=== PATIENT | male | born 1955 | race Caucasian/White ===

== ENCOUNTER 2016-09-03 04:27 | Emergency (ER) | payer OTHER ==
[~2016-09-03] VITALS: Ht 162.6 cm; Wt 90.0 kg
[~2016-09-03 04:27] MED LIST: ALBU17I; CARB200T16; CIPR500T2; KLON2TAB; OMEP20CA5; [UNRECOGNIZED DRUG - REMARK]; [UNRECOGNIZED DRUG - REMARK]
[2016-09-03 04:41] VITALS: BP 146/77; PULSE 92; RESP 16; TEMP 98.9; O2SAT 96
--- NOTE | 2016-09-03 05:37 | PD ---
HPI Chief Complaint: Depression Time Seen by Provider: 05:31 Travel History International Travel<30 days: No Contact w/Intl Traveler<30days: No Traveled to known affect area: No History of Present Illness HPI 60-year-old white male presents to emergency department on a voluntary basis for psychological evaluation. The patient states that he is 100% [facility]. He had been on antidepressants and medicine for anxiety. He states that he had weaned himself off of all medications. He's been off medicines now for months to years. He recently was seen at [facility] 2 days ago for a chest pain evaluation. He had a cardiac catheterization performed which showed a 30% blockage. He was discharged home yesterday. The patient went back again earlier today because of chest pain and shortness of breath and associated nausea. He once again had an evaluation in the ER and was discharged home. He neglected to tell the ER physician that he was feeling depressed. He states that he does not have chest pain now but still has some slight nausea. He has chronic shortness of breath due to COPD. He admits to feeling depressed and having suicidal thoughts but has no current plan. He states that if he thought about killing himself he would squat it out by reading the Bible. He denies any homicidal ideation. No toxic ingestions. He denies alcohol, drugs. He is attempting to quit smoking. [facility] Past Medical History Narrative Medical Anxiety, depression, hypertension, GERD, questionable Valenzeula's, coronary artery disease, COPD Asthma: Yes Anxiety: Yes Depression: Yes Cardiovascular Problems: Yes (HTN, CARDIAC CATH/ANGIOGRAM) High Cholesterol: Yes COPD: Yes Diminished Hearing: No Hypertension: Yes Tetanus Vaccination: < 5 Years Past Surgical History Other Surgery: Yes (FATTY TUMORS REMOVED ARMS/ABDOMEN) Social History Alcohol Use: No (NONE SINCE 1982/USE TO DRINK DAILY, 6 PK BEER) Tobacco Use: Yes (1 /2 PPD/STARTED AGE 15) Substance Use: No Allergies-Medications (Allergen,Severity, Reaction): Coded Allergies: Doxycycline (Verified Allergy, Severe, Nausea/Vomiting, 09/03/16) Contrast Media (Verified Allergy, Intermediate, HIVES, ITCHING, 09/03/16) Penicillin (Verified Allergy, Intermediate, HIVES, 09/03/16) Sulfa (Verified Allergy, Unknown, 09/03/16) Anafranil (Verified Adverse Reaction, Intermediate, "SEVERE DEPRESSION", ) Prozac (Verified Adverse Reaction, Mild, "SEVERE DEPRESSION", 09/03/16) Zoloft (Verified Adverse Reaction, Mild, "SEVERE DEPRESSION", 09/03/16) Reported Meds & Prescriptions Reported Meds & Active Scripts Active Reported ["Heart Pill"] Proventil Mdi (Albuterol Sulfate) 17 Gm Aero Klonopin (Clonazepam) 2 Mg Tab Tegretol (Carbamazepine) 200 Mg Tab ["B/P"] Prilosec (Omeprazole) 20 Mg Capcr Cipro (Ciprofloxacin) 500 Mg Tab Review of Systems Except as stated in HPI: all other systems reviewed are Neg General / Constitutional: No: Fever, Chills Eyes: No: Blurred Vision, Photophobia HENT: No: Sore Throat, Neck Pain Cardiovascular: No: Chest Pain or Discomfort, Palpitations Respiratory: Positive: Shortness of Breath, Wheezing, No: Cough Gastrointestinal: Positive: Nausea, No: Vomiting Genitourinary: No: Dysuria, Nocturia Musculoskeletal: No: Myalgias, Weakness Skin: No Rash, No Itching Physical Exam Narrative GENERAL: Well-nourished, well-developed patient. SKIN: Warm and dry. HEAD: Normocephalic and atraumatic. EYES: No scleral icterus. No injection or drainage. ENT: No nasal drainage noted. Mucous membranes pink. Airway patent. NECK: Supple, trachea midline. Moves head freely without obvious discomfort. CARDIOVASCULAR: Regular rate and rhythm without murmurs, gallops, or rubs. RESPIRATORY: Breath sounds equal bilaterally. No accessory muscle use. Few expiratory wheezes. GASTROINTESTINAL: Abdomen soft, non-tender, nondistended. EXTREMITIES: No cyanosis or edema. BACK: Nontender without obvious deformity. No CVA tenderness. NEURO: Patient is alert and oriented. no sensorimotor deficits. Nonfocal. Normal speech. PSYCH: No delusions. No auditory or visual hallucinations. Data Data Last Documented VS Vital Signs Date Time Temp Pulse Resp B/P Pulse Ox O2 Delivery O2 Flow Rate FiO2 09/03/16 04:41 98.9 92 16 146/77 96 Orders Complete Blood Count With Diff (09/03/16 05:03) Comprehensive Metabolic Panel (09/03/16 05:03) Psych Screen (09/03/16 05:03) Drug Screen, Random Urine (09/03/16 05:03) Alcohol (Ethanol) (09/03/16 05:03) Salicylates (Aspirin) (09/03/16 05:03) Tylenol (Acetaminophen) (09/03/16 05:03) Labs Laboratory Tests Test 09/03/16 09/03/16 05:15 05:25 White Blood Count 12.8 TH/MM3 Red Blood Count 5.23 MIL/MM3 Hemoglobin 16.1 GM/DL Hematocrit 46.7 % Mean Corpuscular Volume 89.2 FL Mean Corpuscular Hemoglobin 30.9 PG Mean Corpuscular Hemoglobin 34.6 % Concent Red Cell Distribution Width 13.0 % Platelet Count 194 TH/MM3 Mean Platelet Volume 8.2 FL Neutrophils (%) (Auto) 73.7 % Lymphocytes (%) (Auto) 16.8 % Monocytes (%) (Auto) 9.4 % Eosinophils (%) (Auto) 0.0 % Basophils (%) (Auto) 0.1 % Neutrophils # (Auto) 9.4 TH/MM3 Lymphocytes # (Auto) 2.2 TH/MM3 Monocytes # (Auto) 1.2 TH/MM3 Eosinophils # (Auto) 0.0 TH/MM3 Basophils # (Auto) 0.0 TH/MM3 CBC Comment DIFF FINAL Differential Comment Sodium Level 129 MEQ/L Potassium Level 3.3 MEQ/L Chloride Level 93 MEQ/L Carbon Dioxide Level 27.1 MEQ/L Anion Gap 9 MEQ/L Blood Urea Nitrogen 13 MG/DL Creatinine 0.69 MG/DL Estimat Glomerular Filtration 117 ML/MIN Rate Random Glucose 85 MG/DL Calcium Level 9.0 MG/DL Total Bilirubin 0.8 MG/DL Aspartate Amino Transf 15 U/L (AST/SGOT) Alanine Aminotransferase 25 U/L (ALT/SGPT) Alkaline Phosphatase 59 U/L Total Protein 7.0 GM/DL Albumin 3.6 GM/DL Salicylates Level 3.7 MG/DL Acetaminophen Level LESS THAN 2.0 MCG/ML Urine Opiates Screen NEG Urine Barbiturates Screen NEG Urine Amphetamines Screen NEG Urine Benzodiazepines Screen NEG Urine Cocaine Screen NEG Urine Cannabinoids Screen NEG MDM Medical Decision Making Medical Screen Exam Complete: Yes Emergency Medical Condition: Yes Medical Record Reviewed: Yes Interpretation(s) Laboratory Tests Test 09/03/16 09/03/16 05:15 05:25 White Blood Count 12.8 TH/MM3 Red Blood Count 5.23 MIL/MM3 Hemoglobin 16.1 GM/DL Hematocrit 46.7 % Mean Corpuscular Volume 89.2 FL Mean Corpuscular Hemoglobin 30.9 PG Mean Corpuscular Hemoglobin 34.6 % Concent Red Cell Distribution Width 13.0 % Platelet Count 194 TH/MM3 Mean Platelet Volume 8.2 FL Neutrophils (%) (Auto) 73.7 % Lymphocytes (%) (Auto) 16.8 % Monocytes (%) (Auto) 9.4 % Eosinophils (%) (Auto) 0.0 % Basophils (%) (Auto) 0.1 % Neutrophils # (Auto) 9.4 TH/MM3 Lymphocytes # (Auto) 2.2 TH/MM3 Monocytes # (Auto) 1.2 TH/MM3 Eosinophils # (Auto) 0.0 TH/MM3 Basophils # (Auto) 0.0 TH/MM3 CBC Comment DIFF FINAL Differential Comment Sodium Level 129 MEQ/L Potassium Level 3.3 MEQ/L Chloride Level 93 MEQ/L Carbon Dioxide Level 27.1 MEQ/L Anion Gap 9 MEQ/L Blood Urea Nitrogen 13 MG/DL Creatinine 0.69 MG/DL Estimat Glomerular Filtration 117 ML/MIN Rate Random Glucose 85 MG/DL Calcium Level 9.0 MG/DL Total Bilirubin 0.8 MG/DL Aspartate Amino Transf 15 U/L (AST/SGOT) Alanine Aminotransferase 25 U/L (ALT/SGPT) Alkaline Phosphatase 59 U/L Total Protein 7.0 GM/DL Albumin 3.6 GM/DL Salicylates Level 3.7 MG/DL Acetaminophen Level LESS THAN 2.0 MCG/ML Urine Opiates Screen NEG Urine Barbiturates Screen NEG Urine Amphetamines Screen NEG Urine Benzodiazepines Screen NEG Urine Cocaine Screen NEG Urine Cannabinoids Screen NEG Differential Diagnosis MDM: High Differential diagnoses: Schizophrenia, schizoaffective disorder, bipolar, anxiety, depression, adjustment reaction, mood disorder NOS, ODD, depressive disorder NOS, dementia, dementia with agitation, psychosis NOS, substance induced mood disorder, intermittent explosive disorder, Asperger syndrome, infection,electrolyte abnormality, malingering. Narrative Course Mental health screening discussed with the patient. Psychiatric screen ordered. The patient's been medically cleared. Diagnosis Primary Impression: Medical clearance for psychiatric admission Additional Impression: depression Condition: Stable Enrike Rivera Sep 03, 2016 05:37
[2016-09-03 05:48] LABS: AMPHETAMINE, URINE NEG (NEG); BARBITURATES, URINE NEG (NEG); COCAINE, URINE NEG (NEG)
[2016-09-03 06:12] LABS: AUTOMATED NEUTROPHIL # 9.4 TH/MM3 (1.8-7.7); BASOPHIL % 0.1 % (0.0-2.0); HEMATOCRIT 46.7 % (39.0-51.0); HEMO FLAGS DIFF FINAL; LYMPH % 16.8 % (9.0-44.0); LYMPHOCYTE # 2.2 TH/MM3 (1.0-4.8); MEAN CELL VOLUME 89.2 FL (80.0-100.0); MEAN CORPUSCULAR HEMOGLOBIN 30.9 PG (27.0-34.0); MEAN CORPUSCULAR HGB CONC 34.6 % (32.0-36.0); MONO % 9.4 % (0.0-8.0); NEUT % 73.7 % (16.0-70.0); PLATELET COUNT 194 TH/MM3 (150-450); RED BLOOD COUNT 5.23 MIL/MM3 (4.50-5.90); WHITE BLOOD COUNT 12.8 TH/MM3 (4.0-11.0)
[2016-09-03 06:36] LABS: ALT (GPT) 25 U/L (12-78); ANION GAP 9 MEQ/L (5-15); AST (GOT) 15 U/L (15-37); BICARBONATE 27.1 MEQ/L (21.0-32.0); BLOOD UREA NITROGEN 13 MG/DL (7-18); CHLORIDE 93 MEQ/L (98-107); GLOMERULAR FILTRATION RATE 117 ML/MIN (>89); POTASSIUM 3.3 MEQ/L (3.5-5.1); SODIUM (NA) 129 MEQ/L (136-145)
[2016-09-03 06:39] LABS: ACETAMINOPHEN LESS THAN 2.0 MCG/ML (10.0-30.0); ALKALINE PHOSPHATASE 59 U/L (45-117); TOTAL BILIRUBIN ADULT 0.8 MG/DL (0.2-1.0)
[2016-09-03 07:44] VITALS: BP 151/69; PULSE 73; RESP 17; O2SAT 97
[2016-09-03] MEDS ORDERED: ASPI-110 PO (07:52)
[2016-09-03] MEDS ORDERED: PRAV40TA2 PO (07:52)
[2016-09-03] MEDS ORDERED: ISOS20TA PO (07:52)
[2016-09-03] MEDS ORDERED: POTA-243 PO (07:52)
[2016-09-03] MEDS ORDERED: LISI-515 PO (07:52)
[2016-09-03] MEDS ORDERED: OMEP20TA PO (07:52)
[2016-09-03] MEDS ORDERED: CARB200T PO (07:52)
[2016-09-03] MEDS ORDERED: HYDR25TA5 PO (07:52)
[2016-09-03] MEDS ORDERED: METO25TA3 PO (07:52)
[2016-09-03 13:00] VITALS: BP 154/70; PULSE 67; RESP 17; O2SAT 97
[2016-09-03] MEDS ORDERED: HYDR-3133 PO (13:36)
== END 2016-09-03 14:00 | disposition home or self-care (01) ==
LOC: NEPD 04:27 → NEPJ 14:00
DX: F32.9 Major depressive disorder, single episode, unspecified (principal); K21.9 Gastro-esophageal reflux disease without esophagitis; K22.70 Barrett's esophagus without dysplasia; I10 Essential (primary) hypertension; F41.9 Anxiety disorder, unspecified; J44.9 Chronic obstructive pulmonary disease, unspecified; F17.210 Nicotine dependence, cigarettes, uncomplicated
CPT/HCPCS: 80053; 80307; 85025; 99283